=== PATIENT | male | born 1995 | race Caucasian/White ===

== ENCOUNTER 2017-01-01 05:34 | Day surgery (SDC) | payer OTHER ==
--- NOTE | 2016-10-16 07:22 | HPN ---
Date/Time of Note Date/Time of Note DATE: 10/16/16 TIME: 07:22 Interval H&P Admission Note Pt. seen H&P reviewed: No system changes WENDY VAZQUEZ MD Oct 16, 2016 07:22
[~2017-01-01] VITALS: Ht 160 cm; Wt 53.6 kg
[2017-01-01] VITALS (12 sets, daily range): BP systolic 127–150; BP diastolic 58–80; PULSE 82–102; RESP 14–29; Ht 160 cm; Wt 53.6 kg
[~2017-01-01 05:34] MED LIST: LABE300T PO; SEVE800T10 PO
--- NOTE | 2017-01-01 07:13 | HPN ---
Date/Time of Note Date/Time of Note DATE: 01/01/17 TIME: 07:13 Interval H&P Admission Note Pt. seen H&P reviewed: No system changes WENDY VAZQUEZ MD Jan 01, 2017 07:13
--- NOTE | 2017-01-01 07:21 | RADRPT ---
PROCEDURE: XR Chest. CLINICAL INDICATION: Preop TECHNIQUE: A single AP view of the chest was obtained. COMPARISON: None. FINDINGS: There is a left chest Perma-Cath with tip near the cavoatrial junction. No focal airspace opacification, pleural effusion or pneumothorax is seen. The cardiomediastinal si lhouette is within normal limits for size. The osseous structures are unremarkable. IMPRESSION: 1. No radiographic evidence of acute cardiopulmonary disease. 2. Left chest Perma-Cath with tip near the cavoatrial junction. RPTAT: HH .Elsie Reyes MD, Date Time Electronically viewed and signed by .Elsie Reyes MD, on 01/01/2017 07:20 .G/
[2017-01-01 07:45] LABS: INR 1.28; PARTIAL THROMBOPLASTIN TIME 32.5 Sec (25.0-35.0); PROTIME 16.1 Sec (12.2-14.2); PT RATIO 1.3
[2017-01-01] MEDS ORDERED: GELATIN SIZE 100 SPONGE ONE (07:45)
[2017-01-01] MEDS ORDERED: HEPARIN 1000 UNITS/ML 10 ML INJ ONE (07:45)
[2017-01-01] MEDS ORDERED: LIDOCAINE 1% (MPF) 30 ML INJ ONE (07:45)
[2017-01-01] MEDS ORDERED: THROMBIN 5000 UNIT VIAL ONE (07:45)
[2017-01-01] MEDS ORDERED: FENTAnyl 50 MCG/ML VIAL ONE (08:07)
[2017-01-01] MEDS ORDERED: MIDAZOLAM 1 MG/ML 2 ML INJ ONE (08:07)
[2017-01-01] MEDS ORDERED: PHENYLephrine (100 MCG/ML) 5ML SYG ONE (08:37)
--- NOTE | 2017-01-01 09:00 | SIPON ---
Date/Time of Note Date/Time of Note DATE: 01/01/17 TIME: 09:00 Operative Report Preoperative Diagnosis ESRD Postoperative Diagnosis same Operation/Procedure Performed L snuffbox AVF creation Surgeon see signature line talent assistant none Anesthesia: general Estimated blood loss: minimal Transfusion Required none Specimen none Grafts/Implants none Complications none WENDY VAZQUEZ MD Jan 01, 2017 09:00
[2017-01-01] MEDS ORDERED: LIDOCAINE 2% (SDV) 5 ML INJ ONE (09:08)
[2017-01-01] MEDS ORDERED: PROPOFOL 20 ML ONE (09:08)
[2017-01-01] MEDS ORDERED: CEFAZOLIN 1 GM INJ ONE (09:08)
[2017-01-01] MEDS ORDERED: ONDANSETRON 4 MG INJ ONE (09:08)
[2017-01-01] MEDS: FENTAnyl 50 MCG/ML VIAL IV PRN ×2 (09:49→09:57)
--- NOTE | 2017-01-01 09:54 | OPR ---
DATE OF OPERATION: 01/01/2017 PREOPERATIVE DIAGNOSIS: End-stage renal disease. POSTOPERATIVE DIAGNOSIS: End-stage renal disease. PROCEDURE PERFORMED: Creation of left arm AV fistula, it is a snuff box AV fistula. SURGEON: Wendy James MD ANESTHESIA: LMA with local. ESTIMATED BLOOD LOSS: Minimal. COMPLICATIONS: No intraprocedural complications. INDICATIONS: A 21-year-old hypertensive gentleman with end-stage renal disease on dialysis via a Pe rm-A-Cath. Currently he is right handed and he has good left arm cephalic vein from the snuffbox al l the way up to the upper arm, so I brought him in today for creation of a left arm snuff box AV fis galen. DESCRIPTION OF PROCEDURE: Patient was brought to the operating room, placed on the table in supine position. Left arm was prepped and draped in the usual sterile fashion. I mapped him again. I loo ked at the ultrasound and the cephalic vein was patent in the anatomic snuff box all the way up to t he upper arm. There was good caliber vein. There was a good pulse in the anatomic snuffbox. Once he was prepped and draped, I made a longitudinal incision over the cephalic vein right over the clare omic snuff box. I carefully dissected out the cephalic vein and ligated this with the surgical clip s and divided it after marking the anterior surface and then sort of moved it out of the way and the n cut the connective tissue overlying the radial artery branch of the snuff box radial artery branch . It was a good artery, good pulse. It was about 3 mm in diameter. It went into a little bit of a spasm after dissection, but it was a good vessel, very soft and health. I clamped the snuff box br anch of the radial artery proximally and distally using bulldog clamps. I made an anterior arteriot brayan about 8 mm in length. I then spatulated the end of the vein to fit the arteriotomy and anastomo sed the end of the vein to the side of the artery using 6-0 Prolene suture in a running standard vas cular surgical fashion. I removed the clamps. There was a good thrill and the vein dilated up nice ly. There was good hemostasis. I closed the skin incision in 2 layers using an inner layer of 3-0 Vicryl and an outer layer of 4-0 Monocryl subcuticular sutures. Sterile dressing was applied. The patient was then extubated in the operating room and transferred to the recovery room in stable cond ition. He tolerated the procedure well without any complications. Dictated By: WENDY RONDON/URVASHI Conf#: [id number] DID#: [id number]
[2017-01-01] MEDS ORDERED: ONDANSETRON 4 MG INJ IV PRN (10:00)
[2017-01-01] MEDS ORDERED: hydrALAzine 20 MG INJ IV PRN (10:00)
[2017-01-01] MEDS ORDERED: DIPHENHYDRAMINE 50 MG INJ IV PRN (10:00)
[2017-01-01] MEDS ORDERED: LABETALOL HCL 20MG INJ IV PRN (10:00)
--- NOTE | 2017-01-02 15:01 | RADRPT ---
Vent Rate: 95 bpm RR Interval: 0 msec CO Interval: 130 msec QRS Duration: 74 msec QT Interval: 352 msec QTC Interval: 442 msec P-R-T [employer]: 63 - 73 - 68 degrees Normal sinus rhythm Normal ECG No previous tracing available for comparison Electronically Signed By: Atif Urbina [id number]
== END 2017-01-01 11:07 | disposition home or self-care (01) ==
LOC: SDS 05:34
PROVIDERS: ATTEND Surgery Vascular Surgery
DX: I12.0 Hypertensive chronic kidney disease with stage 5 chronic kidney disease or end stage renal disease (principal); N18.6 End stage renal disease; Z99.2 Dependence on renal dialysis
CPT/HCPCS: 36821; 71010; 84132; 85610; 85730; 93005; J0690; J1644; J2250; J2370; J2405; J3010; Z7512; Z7610

== ENCOUNTER 2017-04-14 01:11 | Inpatient (IN) | END 2017-04-14 13:25 | disposition left against medical advice (07) | DRG 204 ==

== ENCOUNTER 2017-04-20 00:15 | Inpatient (IN) | END 2017-04-23 15:27 | disposition home or self-care (01) | DRG 166 ==